=== PATIENT | female | born 1970 | race Caucasian/White ===

== ENCOUNTER 2020-07-04 00:03 | Emergency (ER) | payer SELFPAY ==
[2020-07-04 00:26] LABS: #Basophils 0.1 thou/uL (0.0-0.2); #Eosinphils 0.6 thou/uL (0.0-0.7); #Lymphocytes 4.7 thou/uL (1.20-3.40); #Monocytes 0.6 thou/uL (0.11-0.59); %Eosinophils 5.3 % (0.0-10.0); %Lymphocytes 38.8 % (21.0-51.0); %Monocytes 4.9 % (0.0-10.0); %Neutrophils 49.9 % (42.0-75.0); Hemoglobin 13.7 g/dL (12.0-16.0); Mean Corpuscular Volume 88.2 fL (78.0-98.0); Mean Platelet Volume 7.1 fL (7.4-10.4); Platelet Count 461 thou/uL (130-400); RBC Distribution Width 12.3 % (11.5-14.5); Red Blood Cell (RBC) Count 4.57 mill/uL (4.20-5.40)
[2020-07-04 00:49] LABS: ALT (SGPT) 65 U/L (8-55); AST (SGOT) 58 U/L (5-34); Albumin 4.5 g/dL (3.5-5.0); Alcohol 197 mg/dL (Less than 10); Alkaline Phosphatase 74 U/L (40-110); Anion Gap 16 mmol/L (10-20); BUN (Urea Nitrogen) 7 mg/dL (7.0-18.7); Bilirubin, Total 0.2 mg/dL (0.2-1.2); Calc. Creatinine Clearance 0 mL/min (70-130); Calcium 8.9 mg/dL (7.8-10.44); Carbon Dioxide 24 mmol/L (22-29); Chloride 103 mmol/L (98-107); Globulin 3.4 g/dL (2.4-3.5); Glucose 138 mg/dL (70-105); Potassium 3.3 mmol/L (3.5-5.1); Protein, Total 7.9 g/dL (6.0-8.3); Sodium 140 mmol/L (136-145)
[2020-07-04] MEDS ORDERED: Boostrix 0.5 ML (Tdap) VIAL ONE (02:09)
[2020-07-04 02:58] LABS: Troponin I Less than 0.010 ng/mL (< 0.028)
[2020-07-04 03:42] LABS: Bilirubin Negative (Negative); Blood, Urine Negative (Negative); Clarity Clear (Clear); Glucose, Urine (Dipstick) Normal (Negative); Ketone, Urine Negative (Negative); Leukocyte Negative Leu/uL (Negative); Nitrite Negative (Negative); Protein, Urine (Dipstick) Negative (Neg-Trace); Specific Gravity, Urine 1.019 (1.002-1.036); Urobilinogen Normal mg/dL (Less than 2); pH, Urine 6.5 (5.0-9.0)
[2020-07-04 03:53] LABS: Amphetamine Not Detected (NotDetected); Barbiturates Screen Not Detected (NotDetected); Benzodiazepine Screen Not Detected (NotDetected); Cocaine Metabolite Screen Not Detected (NotDetected); Medtox Control Line Valid? VALID (VALID); Medtox Reader # READER 1; Methadone Not Detected (NotDetected); Methamphetamine Not Detected (NotDetected); Opiate Screen Not Detected (NotDetected); Oxycodone Screen Not Detected (NotDetected); Phencyclidine (PCP) Not Detected (NotDetected); THC/Cannabinoid Screen Not Detected (NotDetected); Tricyclic Screen Not Detected (NotDetected)
[2020-07-04] MEDS ORDERED: Morphine 4 MG/ML VIAL ONE (04:08)
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
[2020-07-04] MEDS ORDERED: Iopamidol-370 76% 500 ML 1 ML ONE (08:23)
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
== END 2020-07-04 05:00 | disposition home or self-care (01) ==
LOC: ERS 00:03
DX: S60.410A Abrasion of right index finger, initial encounter (principal); R07.9 Chest pain, unspecified; V89.2XXA Person injured in unspecified motor-vehicle accident, traffic, initial encounter
CPT/HCPCS: 36415; 70450; 71045; 71260; 72125; 74177; 80053; 80306; 80307; 81003; 84484; 85025; 86850; 86900; 86901; 90471; 90715; 93005; 96374; G0390; J2270; Q9967